=== PATIENT | male | born 1970 | race African-American/Black ===

== ENCOUNTER 2018-05-26 00:39 | Emergency (ER) | payer BC ==
[~2018-05-26] VITALS: Ht 170.2 cm; Wt 90.7 kg
[2018-05-26 03:08] VITALS: BP 133/76
== END 2018-05-26 03:10 | disposition home or self-care (01) ==
LOC: ER 00:39
DX: S01.512A Laceration without foreign body of oral cavity, initial encounter (principal); F10.129 Alcohol abuse with intoxication, unspecified; Z88.5 Allergy status to narcotic agent; W22.8XXA Striking against or struck by other objects, initial encounter; Y93.89 Activity, other specified; Y92.89 Other specified places as the place of occurrence of the external cause; Y99.8 Other external cause status